=== PATIENT | male | born 1960 ===

== ENCOUNTER 2017-01-18 17:44 | Emergency (ER) | payer MEDICARE, OTHER ==
[2017-01-18 18:18] VITALS: BP 122/79; PULSE 88; RESP 16; TEMP 99.2; O2SAT 98
[2017-01-18] MEDS ORDERED: Sodium Chloride 0.9% 1,000 ML IV STA (18:25)
[2017-01-18 18:54] LABS: BASO % 0.2 % (0.0-2.0); EOS # 0.1 K/uL (0.0-0.7); EOS % 0.5 % (0.0-4.0); HEMATOCRIT 47.6 % (35.0-51.0); LYMPH # 2.3 K/uL (1.0-4.3); LYMPH % 17.9 % (20.0-40.0); MEAN CELL VOLUME 97.6 fl (80.0-94.0); MEAN CORPUSCULAR HEMOGLOBIN 31.9 pg (27.0-31.0); MEAN CORPUSCULAR HGB CONC 32.7 g/dL (33.0-37.0); MEAN PLATELET VOLUME 7.6 fl (7.2-11.7); MONO # 1.2 K/uL (0.0-0.8); MONO % 9.7 % (0.0-10.0); NEUT # 9.2 K/uL (1.8-7.0); NEUT % 71.7 % (50.0-75.0); RED CELL DISTRIBUTION WIDTH 14.2 % (11.5-14.5); WHITE BLOOD COUNT 12.8 K/uL (4.8-10.8)
--- NOTE | 2017-01-18 18:57 | ED PDOC ---
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 Pain, described as a sudden onset cramping/muscle spasm sensation, was initially felt as he had been walking his dog; severe enough to cause him to fall to the ground (injured left elbow). It is reportedly worse with putting weight onto the affected leg, though he denies back pain, vomiting, diarrhea, numbness or tingling. No vitamin use or obvious injury/trauma. Normal PO intake. Has taken no medications prior to arrival for symptom relief. Of note, patient is also experiencing a similar cramping pain within the left side of his abdomen, reportedly radiating up towards his chest, though he reports that this has been a chronic issue. PMD: Dr. Reina Past Medical History Reviewed: Historical Data, Nursing Documentation, Vital Signs Vital Signs: Last Vital Signs Temp 99.2 F 01/18/17 17:53 Pulse 88 01/18/17 17:53 Resp 16 01/18/17 17:53 BP 122/79 01/18/17 17:53 Pulse Ox 98 01/18/17 17:53 - Medical History PMH: Asthma (LAST ATTACK 3YRS AGO), HTN, Hypercholesterolemia - Surgical History Surgical History: Appendectomy - Family History Family History: States: Unknown Family Hx - Social History Current smoker - smoking cessation education provided: No Alcohol: None (former alcohol abuser) Drugs: Denies - Home Medications Home Medications: Ambulatory Orders Medication Instructions Recorded Naproxen 500 mg PO Q12 #20 tab 04/09/15 traMADol/Acetaminophen [Ultracet 1 - 2 tab PO QID #30 tab 04/09/15 325 MG-37.5 MG] Diazepam [Valium] 2 mg PO BID PRN #8 tab 01/18/17 Naproxen [Naprosyn] 1 tab PO BID PRN #60 tab 01/18/17 - Allergies Allergies/Adverse Reactions: Allergies Allergy/AdvReac Type Severity Reaction Status Date / Time No Known Allergies Allergy Verified 04/09/15 11:59 Review of Systems ROS Statement: Except As Marked, All Systems Reviewed And Found Negative Gastrointestinal: Positive for: Abdominal Pain (left sided cramping w/radiation up towards chest, chronic issue). Negative for: Vomiting, Diarrhea Musculoskeletal: Positive for: Leg Pain (right posterior thigh, cramping/muscle spasm sensation). Negative for: Back Pain Neurological: Negative for: Numbness (no tingling) Physical Exam - Reviewed Nursing Documentation Reviewed: Yes Vital Signs Reviewed: Yes - Physical Exam Appears: Positive for: Non-toxic, In Acute Distress (moderate painful distress) Head Exam: Positive for: ATRAUMATIC, NORMOCEPHALIC Skin: Positive for: Normal Color, Warm, Dry Eye Exam: Positive for: Normal appearance, PERRL ENT: Positive for: Normal ENT Inspection Cardiovascular/Chest: Positive for: Regular Rate, Rhythm. Negative for: Edema, Murmur Respiratory: Positive for: Normal Breath Sounds. Negative for: Respiratory Distress Gastrointestinal/Abdominal: Positive for: Normal Exam, Soft. Negative for: Tenderness Extremity: Positive for: Normal ROM, Tenderness (exquisite tenderness noted at posterior mid thigh; no palpable spasm/mass or skin abnormalities). Negative for: Deformity, Swelling Neurologic/Psych: Positive for: Alert, Oriented. Negative for: Motor/Sensory Deficits (strength 5/5 distally w/in right leg, neurovascularly intact) - Laboratory Results Result Diagrams: 01/18/17 18:48 01/18/17 18:48 - ECG O2 Sat by Pulse Oximetry: 98 (RA) Pulse Ox Interpretation: Normal - CT Scan/US Duplex LE Vein, Right Other Rad Studies (CT/US): Read By Radiologist, Radiology Report Reviewed Other Rad Interpretation: no evidence of DVT Medical Decision Making Medical Decision Makin:12 Initial Impression: leg pain Differential diagnoses include but are not limited to muscle spasm, electrolyte abnormality, ligament strain, muscle tear. Initial Plan: * Duplex LE Vein, Right * XR Left Elbow * Labs * CPK * Magnesium * Phosphorus * D-Dimer * Urine Drug Screen * IV NS 1000ml at 1000mls/hr * Toradol 15mg IV * Valium 5mg PO * Reevaluation 20:01 US report reviewed: FINDINGS: Deep veins: Common femoral, superficial femoral, popliteal and posterior tibial veins were evaluated. All veins examined are compressible. There are no intraluminal filling defects. There is expected blood flow on Doppler imaging. There is change in waveform with augmentation. Impression: No deep venous thrombosis in the visualized vascular segments of the right lower extremity Scribe Attestation: Documented by Ofe Fernandez, acting as a scribe for Clarice Dawkins MD. Provider Scribe Attestation: All medical record entries made by the Scribe were at my direction and personally dictated by me. I have reviewed the chart and agree that the record accurately reflects my personal performance of the history, physical exam, medical decision making, and the department course for this patient. I have also personally directed, reviewed, and agree with the discharge instructions and disposition. Disposition - Clinical Impression Clinical Impression: Muscle spasm of right lower extremity - Disposition Referrals: Alberto Reina MD [Medical Doctor] - 01/20/17 Disposition: Routine/Home Disposition Time: 22:00 Condition: IMPROVED Additional Instructions: DRINK PLENTY OF HYDRATING FLUIDS TO PREVENT MUSCLE CRAMPS SEE DR REINA ON FRIDAY FOR REEVALUATION. Prescriptions: Naproxen [Naprosyn] 1 tab PO BID PRN #60 tab PRN Reason: Pain Diazepam [Valium] 2 mg PO BID PRN #8 tab PRN Reason: Muscle Spasm Instructions: Muscle Spasm (ED)
[2017-01-18 19:11] LABS: ALKALINE PHOSPHATASE 71 U/L (38-126); ALT/SGPT 27 U/L (21-72); AST/SGOT 58 U/L (17-59); BILIRUBIN,TOTAL 0.6 mg/dl (0.2-1.3); BLOOD UREA NITROGEN 35 mg/dl (9-20); CALCIUM 10.2 mg/dL (8.4-10.2); CARBON DIOXIDE 22 mmol/L (22-30); CHLORIDE 104 mmol/L (98-107); GFR AFRICAN-AMERICAN > 60; GLUCOSE,RANDOM 106 mg/dL (75-110); PHOSPHOROUS 4.2 mg/dl (2.5-4.5); POTASSIUM 4.8 MMOL/L (3.6-5.0); SODIUM 141 mmol/l (132-148); TOTAL PROTEIN 8.6 G/DL (6.3-8.2)
[2017-01-18 19:15] LABS: ALB/GLOB RATIO 1.2 (1.0-2.1)
--- NOTE | 2017-01-18 20:01 | US ---
EXAM: US Duplex Right Lower Extremity Veins CLINICAL HISTORY: 56 years old, male; Pain; Leg, lower; Right; Additional info: Leg pain TECHNIQUE: Real-time ultrasound scan of the veins of the right lower extremity with color Doppler flow, spectral waveform analysis and compression. EXAM DATE/TIME: 01/18/2017 7:32 PM COMPARISON: There are no prior studies for comparison. FINDINGS: Deep veins: Common femoral, superficial femoral, popliteal and posterior tibial veins were evaluated. All veins examined are compressible. There are no intraluminal filling defects. There is expected blood flow on Doppler imaging. There is change in waveform with augmentation. Impression: No deep venous thrombosis in the visualized vascular segments of the right lower extremity
--- NOTE | 2017-01-19 15:38 | RAD ---
PROCEDURE: Radiographs of the left elbow. HISTORY: elbow pain s/p fall COMPARISON: No prior. FINDINGS: BONES: Normal. No fracture. JOINTS: Normal. No osteoarthritis. SOFT TISSUES: Normal. JOINT EFFUSION: None. OTHER FINDINGS: None IMPRESSION: Unremarkable radiographs of the left elbow.
== END 2017-01-18 20:42 | disposition home or self-care (01) ==
LOC: H.ER 17:44
DX: M62.838 Other muscle spasm (principal); M25.522 Pain in left elbow; M79.604 Pain in right leg; E78.00 Pure hypercholesterolemia, unspecified; I10 Essential (primary) hypertension
CPT/HCPCS: 73080; 80053; 82550; 83735; 84100; 85025; 85378; 93971; 96374; 99284; J1885; J7040

== ENCOUNTER 2017-02-03 13:13 | Emergency (ER) | payer MEDICARE, OTHER ==
[2017-02-03 13:21] VITALS: BP 121/78; PULSE 98; RESP 18; TEMP 97; O2SAT 99
[2017-02-03] MEDS ORDERED: Clindamycin 600 MG in Sodium Chloride 0.9% 100 ML IVPB ONE (13:45)
--- NOTE | 2017-02-03 13:49 | ED PDOC ---
Upper Extremity Pain/Injury Time Seen by Provider: 02/03/17 13:39 Chief Complaint (Nursing): Abnormal Skin Integrity Chief Complaint (Provider): Abnormal Skin Integrity History Per: Patient History/Exam Limitations: no limitations Onset/Duration Of Symptoms: Days Current Symptoms Are (Timing): Still Present Quality: "Pain" Severity: Moderate Exacerbating Factor(s): Nothing Additional Complaint(s): Patient is a 56 year old male who presents to ED for evaluation of left elbow pain for several days. Patient reports pain with swelling and drainage. Patient was evaluated in ED last week after falling and sustaining an injury to that area. Denies fever. Past Medical History Reviewed: Historical Data, Nursing Documentation, Vital Signs Vital Signs: Last Vital Signs Temp 97 F L 02/03/17 13:18 Pulse 98 H 02/03/17 13:18 Resp 18 02/03/17 13:18 BP 121/78 02/03/17 13:18 Pulse Ox 99 02/03/17 13:18 - Medical History PMH: Asthma (LAST ATTACK 3YRS AGO), HTN, Hypercholesterolemia - Surgical History Surgical History: Appendectomy - Family History Family History: States: Unknown Family Hx - Immunization History Hx Tetanus Toxoid Vaccination: No Hx Influenza Vaccination: No Hx Pneumococcal Vaccination: No - Home Medications Home Medications: Ambulatory Orders Medication Instructions Recorded Naproxen 500 mg PO Q12 #20 tab 04/09/15 traMADol/Acetaminophen [Ultracet 1 - 2 tab PO QID #30 tab 04/09/15 325 MG-37.5 MG] Diazepam [Valium] 2 mg PO BID PRN #8 tab 01/18/17 Naproxen [Naprosyn] 1 tab PO BID PRN #60 tab 01/18/17 Clindamycin [Cleocin] 300 mg PO TID #30 cap 02/03/17 traMADol [Ultram] 50 mg PO Q8 #10 tab 02/03/17 - Allergies Allergies/Adverse Reactions: Allergies Allergy/AdvReac Type Severity Reaction Status Date / Time No Known Allergies Allergy Verified 02/03/17 13:17 Review of Systems Constitutional: Negative for: Fever, Chills Cardiovascular: Negative for: Chest Pain Respiratory: Negative for: Shortness of Breath Gastrointestinal: Negative for: Nausea, Vomiting Musculoskeletal: Positive for: Arm Pain Physical Exam - Reviewed Nursing Documentation Reviewed: Yes Vital Signs Reviewed: Yes - Physical Exam Appears: Positive for: Non-toxic, No Acute Distress Skin: Positive for: Normal Color, Warm Eye Exam: Positive for: Normal appearance Neck: Positive for: Normal, Painless ROM Extremity: Positive for: Normal ROM, Other (Left elbow: Mild swelling with shallow ulcer (-) drainage (-) erythema (-) crepitus ) Neurologic/Psych: Positive for: Alert, Oriented. Negative for: Motor/Sensory Deficits - Laboratory Results Result Diagrams: 02/03/17 14:10 02/03/17 14:10 - ECG O2 Sat by Pulse Oximetry: 99 (RA) Pulse Ox Interpretation: Normal Medical Decision Making Medical Decision Making: Time: 1340 Initial impression: Elbow pain with ulcer Initial plan: -- VBG -- CMP -- CBC -- Elbow Xray -- Clinda IV Scribe Attestation: Documented by Neelam Tolbert acting as a scribe for Nikos Monzon MD MD Scribe Attestation: All medical record entries made by the Scribe were at my direction and personally dictated by me. I have reviewed the chart and agree that the record accurately reflects my personal performance of the history, physical exam, medical decision making, and the department course for this patient. I have also personally directed, reviewed, and agree with the discharge instructions and disposition. Disposition - Clinical Impression Clinical Impression: Elbow contusion - Patient ED Disposition Is Patient to be Admitted: No Counseled Patient/Family Regarding: Studies Performed, Diagnosis, Need For Followup, Rx Given - Disposition Referrals: [facility] [Outside] Disposition: Routine/Home Disposition Time: 15:25 Condition: FAIR Prescriptions: Clindamycin [Cleocin] 300 mg PO TID #30 cap traMADol [Ultram] 50 mg PO Q8 #10 tab Instructions: Contusion in Adults (ED)
[2017-02-03 14:42] LABS: VENOUS BLOOD GAS BASE EXCESS -0.6 mmol/L (0.0-2.0); VENOUS BLOOD GAS PCO2 35 mmHg (40-60); VENOUS BLOOD PH 7.43 (7.32-7.43)
[2017-02-03 14:49] LABS: EOS % 0.1 % (0.0-4.0); HEMATOCRIT 45.9 % (35.0-51.0); LYMPH # 1.7 K/uL (1.0-4.3); LYMPH % 12.6 % (20.0-40.0); MEAN CELL VOLUME 95.6 fl (80.0-94.0); MEAN CORPUSCULAR HEMOGLOBIN 32.6 pg (27.0-31.0); MEAN CORPUSCULAR HGB CONC 34.1 g/dL (33.0-37.0); MEAN PLATELET VOLUME 7.5 fl (7.2-11.7); MONO # 1.2 K/uL (0.0-0.8); MONO % 8.9 % (0.0-10.0); NEUT # 10.3 K/uL (1.8-7.0); NEUT % 78.4 % (50.0-75.0); WHITE BLOOD COUNT 13.2 K/uL (4.8-10.8)
[2017-02-03 15:06] LABS: ALB/GLOB RATIO 1.1 (1.0-2.1); ALKALINE PHOSPHATASE 87 U/L (38-126); ALT/SGPT 31 U/L (21-72); AST/SGOT 57 U/L (17-59); BILIRUBIN,TOTAL 0.8 mg/dl (0.2-1.3); BLOOD UREA NITROGEN 28 mg/dl (9-20); CALCIUM 9.9 mg/dL (8.4-10.2); CARBON DIOXIDE 21 mmol/L (22-30); CHLORIDE 102 mmol/L (98-107); GFR AFRICAN-AMERICAN > 60; GLUCOSE,RANDOM 103 mg/dL (75-110); POTASSIUM 4.3 MMOL/L (3.6-5.0); SODIUM 141 mmol/l (132-148); TOTAL PROTEIN 8.6 G/DL (6.3-8.2)
--- NOTE | 2017-02-03 15:45 | RAD ---
Indication: Rule out osteomyelitis Left elbow radiographs Comparison: Left elbow radiographs performed 01/18/17 Findings: No acute displaced fracture or dislocation identified. No evidence of abnormal fat pad elevation or significant joint effusion. Soft tissues appear unremarkable. No evidence of radiopaque foreign body. Impression: Mild soft tissue swelling.
== END 2017-02-03 16:21 | disposition home or self-care (01) ==
LOC: H.ER 13:13
DX: S50.02XA Contusion of left elbow, initial encounter (principal); W19.XXXA Unspecified fall, initial encounter; Y92.89 Other specified places as the place of occurrence of the external cause; E78.00 Pure hypercholesterolemia, unspecified; I10 Essential (primary) hypertension; J45.909 Unspecified asthma, uncomplicated; M79.89 Other specified soft tissue disorders; L03.90 Cellulitis, unspecified

== ENCOUNTER 2017-07-10 15:55 | Emergency (ER) | payer MEDICARE, OTHER ==
[2017-07-10 16:22] VITALS: BP 93/57; PULSE 87; RESP 20; TEMP 99.3; O2SAT 99
--- NOTE | 2017-07-10 16:37 | ED PDOC ---
HPI: General Adult Time Seen by Provider: 07/10/17 16:28 Chief Complaint (Nursing): Abdominal Pain Chief Complaint (Provider): Weakness History Per: Patient History/Exam Limitations: no limitations Have you had recent travel within the past 21 days to any of the following countries: [place], [place], [place] or [place]?: No Additional History Per: Patient Additional Complaint(s): The patient is a 56yo male, history of liver cirrhosis, asthma, hypertension, appendectomy, presents to the ED for evaluation of generalized weakness with associated nausea. Patient states he just came to the [place] from [place] yesterday. He offers no additional medical complaints. Patient is requesting food to eat. Past Medical History Reviewed: Historical Data, Nursing Documentation, Vital Signs Vital Signs: Last Vital Signs Temp 99.3 F 07/10/17 16:19 Pulse 87 07/10/17 16:19 Resp 20 07/10/17 16:19 BP 93/57 L 07/10/17 16:19 Pulse Ox 99 07/10/17 16:41 - Medical History PMH: Asthma (LAST ATTACK 3YRS AGO), HTN, Hypercholesterolemia - Surgical History Surgical History: Appendectomy - Family History Family History: States: Unknown Family Hx - Immunization History Hx Tetanus Toxoid Vaccination: No Hx Influenza Vaccination: No Hx Pneumococcal Vaccination: No - Home Medications Home Medications: Ambulatory Orders Medication Instructions Recorded Naproxen 500 mg PO Q12 #20 tab 04/09/15 traMADol/Acetaminophen [Ultracet 1 - 2 tab PO QID #30 tab 04/09/15 325 MG-37.5 MG] Diazepam [Valium] 2 mg PO BID PRN #8 tab 01/18/17 Naproxen [Naprosyn] 1 tab PO BID PRN #60 tab 01/18/17 Clindamycin [Cleocin] 300 mg PO TID #30 cap 02/03/17 traMADol [Ultram] 50 mg PO Q8 #10 tab 02/03/17 - Allergies Allergies/Adverse Reactions: Allergies Allergy/AdvReac Type Severity Reaction Status Date / Time No Known Allergies Allergy Verified 02/03/17 13:17 Review of Systems ROS Statement: Except As Marked, All Systems Reviewed And Found Negative Constitutional: Positive for: Weakness Gastrointestinal: Positive for: Nausea Physical Exam - Reviewed Nursing Documentation Reviewed: Yes Vital Signs Reviewed: Yes - Physical Exam Appears: Positive for: Non-toxic, No Acute Distress Head Exam: Positive for: ATRAUMATIC, NORMAL INSPECTION, NORMOCEPHALIC Skin: Positive for: Warm, Dry Neck: Positive for: Supple Cardiovascular/Chest: Positive for: Regular Rate, Rhythm Respiratory: Positive for: Normal Breath Sounds. Negative for: Respiratory Distress Gastrointestinal/Abdominal: Positive for: Soft. Negative for: Tenderness Extremity: Positive for: Normal ROM. Negative for: Deformity, Swelling Neurologic/Psych: Positive for: Alert, Oriented. Negative for: Motor/Sensory Deficits - Laboratory Results Result Diagrams: 07/10/17 17:28 07/10/17 17:44 - ECG Interpretation Of ECG: NSR @ 74, no ST-T changes. O2 Sat by Pulse Oximetry: 99 (RA) Pulse Ox Interpretation: Normal Medical Decision Making Medical Decision Making: Time: 1630 Impression: Generalized weakness Plan: -- Labs -- EKG Reassess Scribe Attestation: Documented by Surekha Power acting as a scribe for Mar Ryan MD. Provider Attestation: All medical record entries made by the Scribe were at my direction and personally dictated by me. I have reviewed the chart and agree that the record accurately reflects my personal performance of the history, physical exam, medical decision making, and the department course for this patient. I have also personally directed, reviewed, and agree with the discharge instructions and disposition. Disposition - Clinical Impression Clinical Impression: Episode of generalized weakness - Disposition Referrals: [facility] [Outside] Disposition: Routine/Home Disposition Time: 18:52 Condition: IMPROVED Instructions: Weakness (ED) Forms: [id number] (Welsh)
[2017-07-10 17:56] LABS: BASO # 0.1 K/uL (0.0-0.2); BASO % 0.3 % (0.0-2.0); EOS % 0.2 % (0.0-4.0); HEMATOCRIT 43.1 % (35.0-51.0); LYMPH # 2.6 K/uL (1.0-4.3); LYMPH % 17.3 % (20.0-40.0); MEAN CELL VOLUME 96.8 fl (80.0-94.0); MEAN CORPUSCULAR HEMOGLOBIN 32.2 pg (27.0-31.0); MEAN CORPUSCULAR HGB CONC 33.2 g/dL (33.0-37.0); MEAN PLATELET VOLUME 7.7 fl (7.2-11.7); MONO # 2.2 K/uL (0.0-0.8); MONO % 15.1 % (0.0-10.0); NEUT # 9.9 K/uL (1.8-7.0); NEUT % 67.1 % (50.0-75.0); NRBC % 0.1 % (0.0-0.0); RED CELL DISTRIBUTION WIDTH 13.8 % (11.5-14.5); WHITE BLOOD COUNT 14.8 K/uL (4.8-10.8)
[2017-07-10 18:17] LABS: ALB/GLOB RATIO 1.4 (1.0-2.1); BILIRUBIN,TOTAL 0.6 mg/dl (0.2-1.3); CALCIUM 9.3 mg/dL (8.4-10.2); POTASSIUM 3.8 MMOL/L (3.6-5.0); TOTAL PROTEIN 7.5 G/DL (6.3-8.2)
--- NOTE | 2017-07-11 08:38 | CARD ---
APPROVED REPORT EKG Measurement Heart [id number] <Conclusion> Normal sinus rhythm Normal ECG
== END 2017-07-10 19:00 | disposition home or self-care (01) ==
LOC: H.ER 15:55
DX: R53.1 Weakness (principal)

== ENCOUNTER 2018-11-27 11:43 | Emergency (ER) | payer MEDICARE ==
[2018-11-27] MEDS ORDERED: Albuterol-Ipratrop 3 mg / 0.5 (3 ml) UD IH STA (12:13)
--- NOTE | 2018-11-27 12:18 | ED PDOC ---
History of Present Illness History of Present Illness: Agustín Larson is a 58 year old male, with a past medical history of HTN, asthma and hypercholesterolemia, who presents to the emergency department complaining of fever, nonproductive cough, sore throat, headache and bodyaches ongoing since yesterday. Patient also reports a chest pain with coughing. He denies any shortness of breath, vomiting, diarrhea or other medical complaints. PMD: Dr. Sabillon HPI: Influenza Time Seen by Provider: 11/27/18 12:07 Chief Complaint (Provider): fever, cough, sore throat History Per: Patient Exam Limitations: no limitations Onset/Duration Of Symptoms: Days (yesterday) Symptoms include: fever, headache, bodyaches, sore throat, cough, chest pain (w/ cough only). denies: vomiting, diarrhea, difficulty breathing Past Medical History Reviewed: Historical Data, Nursing Documentation, Vital Signs - Medical History PMH: Asthma (LAST ATTACK 3YRS AGO), HTN, Hypercholesterolemia - Surgical History Surgical History: Appendectomy - Family History Family History: States: Unknown Family Hx - Social History Current smoker - smoking cessation education provided: No Alcohol: None Drugs: Denies - Immunization History Hx Tetanus Toxoid Vaccination: No Hx Influenza Vaccination: No Hx Pneumococcal Vaccination: No - Home Medications Home Medications: Ambulatory Orders Medication Instructions Recorded Naproxen 500 mg PO Q12 #20 tab 04/09/15 traMADol/Acetaminophen [Ultracet 1 - 2 tab PO QID #30 tab 04/09/15 325 MG-37.5 MG] Diazepam [Valium] 2 mg PO BID PRN #8 tab 01/18/17 Naproxen [Naprosyn] 1 tab PO BID PRN #60 tab 01/18/17 Clindamycin [Cleocin] 300 mg PO TID #30 cap 02/03/17 traMADol [Ultram] 50 mg PO Q8 #10 tab 02/03/17 Albuterol HFA [Ventolin HFA 90 2 puff IH Q4H #1 puff 11/27/18 mcg/actuation (8 g)] Naproxen [Naprosyn] 500 mg PO Q12H #20 tab 11/27/18 Oseltamivir Cap [Tamiflu] 75 mg PO BID #10 cap 11/27/18 - Allergies Allergies/Adverse Reactions: Allergies Allergy/AdvReac Type Severity Reaction Status Date / Time No Known Allergies Allergy Verified 02/03/17 13:17 Review of Systems ROS Statement: Except As Marked, All Systems Reviewed And Found Negative Constitutional: Positive for: Fever, Other (body aches) ENT: Positive for: Throat Pain Cardiovascular: Positive for: Chest Pain (w/ cough) Respiratory: Positive for: Cough (nonproductive). Negative for: Shortness of Breath Gastrointestinal: Negative for: Nausea, Vomiting Neurological: Positive for: Headache Physical Exam - Reviewed Nursing Documentation Reviewed: Yes Vital Signs Reviewed: Yes - Physical Exam Appears: Positive for: No Acute Distress Head Exam: Positive for: ATRAUMATIC, NORMAL INSPECTION, NORMOCEPHALIC Skin: Positive for: Normal Color, Warm, Dry Eye Exam: Positive for: Normal appearance, EOMI, PERRL ENT: Positive for: Normal ENT Inspection. Negative for: Pharyngeal Erythema, Tonsillar Exudate, Tonsillar Swelling Neck: Positive for: Normal, Painless ROM, Supple Cardiovascular/Chest: Positive for: Regular Rate, Rhythm. Negative for: Murmur Respiratory: Positive for: Rhonchi, Wheezing (mild expiratory wheezing). Negative for: Respiratory Distress Gastrointestinal/Abdominal: Positive for: Normal Exam, Soft. Negative for: Tenderness, Guarding, Rebound Back: Positive for: Normal Inspection. Negative for: L CVA Tenderness, R CVA Tenderness, Vertebral Tenderness Extremity: Positive for: Normal ROM (upper and lower extremities). Negative for: Deformity Neurologic/Psych: Positive for: Alert, Oriented. Negative for: Motor/Sensory Deficits Medical Decision Making Medical Decision Making: Time: 12:07 Initial Impression: Will give nebulizer treatment while awaiting flu test, most likely treat for the flu Initial Plan: --Duoneb 3 ml IH --Influenza A B --Reevaluation Scribe Attestation: Documented by Jefe Salinas, acting as a scribe for Nikos Monzon MD Provider Scribe Attestation: All medical record entries made by the Scribe were at my direction and personally dictated by me. I have reviewed the chart and agree that the record accurately reflects my personal performance of the history, physical exam, medical decision making, and the department course for this patient. I have also personally directed, reviewed, and agree with the discharge instructions and disposition. Disposition - Clinical Impression Clinical Impression: Influenza - Patient ED Disposition Is Patient to be Admitted: No Counseled Patient/Family Regarding: Studies Performed, Diagnosis, Need For Followup, Rx Given - Disposition Referrals: [facility] [Outside] Disposition: Routine/Home Disposition Time: 13:04 Condition: FAIR Prescriptions: Albuterol HFA [Ventolin HFA 90 mcg/actuation (8 g)] 2 puff IH Q4H #1 puff Naproxen [Naprosyn] 500 mg PO Q12H #20 tab Oseltamivir Cap [Tamiflu] 75 mg PO BID #10 cap Instructions: Flu
[2018-11-27] MEDS ORDERED: Albuterol-Ipratrop 3 mg / 0.5 (3 ml) UD ONE (12:25)
[2018-11-27 14:30] VITALS: BP 117/78; PULSE 85; RESP 16; TEMP 97.7; O2SAT 100
== END 2018-11-27 13:59 | disposition home or self-care (01) ==
LOC: H.ER 11:43
DX: J11.1 Influenza due to unidentified influenza virus with other respiratory manifestations (principal); I10 Essential (primary) hypertension